=== PATIENT | female | born 1990 | race Caucasian/White ===

== ENCOUNTER 2020-08-05 05:01 | Inpatient (IN) | payer OTHER, SELFPAY ==
[2020-08-05] VITALS (121 sets, daily range): BP systolic 64–127; BP diastolic 38–94; PULSE 63–143; RESP 16; TEMP 36.2–36.9; O2SAT 94–100; BMI 33.8
[2020-08-05 05:52] LABS: Basophils Absolute Auto 0.1 K/mm3 (0.0-0.1); Basophils Percent Auto 0.6 % (0.2-1.2); Eosinophils Absolute Auto 0.2 K/mm3 (0-0.3); Eosinophils Percent Auto 1.5 % (0-4.4); Hematocrit 32.1 % (37.0-47.0); Hemoglobin 10.3 g/dL (12.0-15.0); Immature Granulocyte Absolute 0.06 K/mm3 (0.00-0.031); Immature Granulocyte Percent A 0.6 % (0-0.5); Lymphocytes Absolute Auto 2.34 K/mm3 (0.9-3.2); Lymphocytes Percent Auto 22.5 % (18.3-44.2); Mean Corpuscular HGB Conc 32.1 g/dl (32-36); Mean Corpuscular Hemoglobin 26.8 pg (26-34); Mean Corpuscular Volume 83.4 fl (80-100); Mean Platelet Volume 12.5 fl (7.4-10.4); Monocytes Absolute Auto 0.5 K/mm3 (0.1-0.6); Neutrophils Absolute Auto 7.3 K/mm3 (1.3-6.7); Neutrophils Percent Auto 69.8 % (45.5-73.1); Platelet Count Result 176 k/mm3 (150-375); Red Blood Count 3.85 M/mm3 (4.2-5.4); Red Cell Distribution Width 13.1 % (11.5-14.5); White Blood Count 10.4 K/mm3 (4.5-10.0)
--- NOTE | 2020-08-05 05:54 | LDADM ---
This patient, Mary Jo Boyce, was admitted to Labor/Delivery/Recovery 104 on 08/05/20 at 05:01. Plans for labor, pain management and were discussed with patient. Patient/family oriented to hospital policies and general routines including ID bracelet, bed and alarms, visiting hours, pain management, procedures, bathroom and other care routines, personal items, smoking policy, room service/diet and guest tray routines, infant security routines, and visiting hours. Patient/Family are encouraged to report perceived risks to care and to ask questions if they do not understand what they are told or what they should do. See OBIX for further documentation.
[2020-08-05] MEDS: OXYTOCIN 30 UNITS/NS 500 ML 30 UNITS/500 ML BAG IV CONT (06:30)
[2020-08-05] MEDS: LACTATED RINGERS 1,000 ML 125 ML IV CONT ×2 (06:30→09:44)
--- NOTE | 2020-08-05 07:20 | WPDHPUPDATE1 ---
History and Physical Update Update Date/Time: 08/05/20 07:20 29 yo at 39w5d who presents for IOL. Her is complicated by history of prior section. She endorses good movement. She denies any regular contractions. also complicated by hypothyroidism on levothyroxine. Pt has been asymptomatic with lab values within normal limits. History and Physical has been reviewed, including an updated exam of the patient. There are NO changes in the patient's condition. Risks, benefits, and alternatives have been discussed and questions answered. Patient agrees to proceed with procedure. A/P: 29 yo at 39w5d admit to L&D routine admission orders prior c/s x1 Rh+ GBS neg FHT cat 1 plan for pitocin IOL. cvx ft/70/-3 Kaufman bulb placed this AM and filled with 60cc of saline AROM at time of kaufman placement for clear fluid continuous EFM
--- NOTE | 2020-08-05 08:51 | WPDANESEPPF ---
Anes - Initial Pre Proc Eval Procedure: Labor Epidural Date/Time: 08/05/20 08:51 Surgeon: Patrick Isidro MD Pre Op Diagnosis: Induction of Labor Patient Data Age: 29 Gender: F Height: 1.57 m Weight: 84 kg Last Vital Signs Temp 36.9 C 08/05/20 06:40 Pulse 92 08/05/20 08:00 BP 119/59 L 08/05/20 08:00 Allergies Allergy/AdvReac Type Severity Reaction Status Date / Time No Known Allergies Allergy Verified 07/19/20 14:33 Home Medications Medication Instructions Recorded Confirmed Type levothyroxine 50 mcg PO DAILY 07/19/20 08/05/20 History prenat.vits,marilu,rzc-lajl-xftio 1 tablet PO DAILY 07/19/20 08/05/20 History [ #2] Laboratory Tests 08/05/20 08/05/20 08/05/20 05:22 05:22 05:22 WBC 10.4 K/mm3 H K/mm3 (4.5-10.0) RBC 3.85 M/mm3 L M/mm3 (4.2-5.4) Hgb 10.3 g/dL L g/dL (12.0-15.0) Hct 32.1 % L % (37.0-47.0) MCV 83.4 fl fl (80-100) MCH 26.8 pg pg (26-34) MCHC 32.1 g/dl g/dl (32-36) RDW 13.1 % % (11.5-14.5) Plt Count 176 k/mm3 k/mm3 (150-375) MPV 12.5 fl H fl (7.4-10.4) Immature Gran % (Auto) 0.6 % H % (0-0.5) Neut % (Auto) 69.8 % % (45.5-73.1) Lymph % (Auto) 22.5 % % (18.3-44.2) [place] % (Auto) 5.0 % % (2.6-8.5) Eos % (Auto) 1.5 % % (0-4.4) Baso % (Auto) 0.6 % % (0.2-1.2) Lymph # (Auto) 2.34 K/mm3 K/mm3 (0.9-3.2) [place] # (Auto) 0.5 K/mm3 K/mm3 (0.1-0.6) Eos # (Auto) 0.2 K/mm3 K/mm3 (0-0.3) Baso # (Auto) 0.1 K/mm3 K/mm3 (0.0-0.1) Abs Immat Gran (auto) 0.06 K/mm3 H K/mm3 (0.00-0.031) Absolute Neuts (auto) 7.3 K/mm3 H K/mm3 (1.3-6.7) Absolute Nucleated RBC 0.0 K/mm3 K/mm3 (0.0-0.012) Nucleated RBC % 0.0 % % (0.0-0.2) RPR Pending Blood Type A Positive Antibody Screen Negative Patient hx anesthesia problems: none Family hx anesthesia problems: none PMFSH Past Medical History Medical History Obesity Family History Family History Father Hypothyroidism Social History Social History Smoking status: Never smoker Substance use: never Spiritual care concerns: No Anes - Eval Final PreProcedure Day of Procedure 08/05/20 08:51 Patient weight: obese Heart: regular rate and rhythm Lungs: normal air movement Airway: Mallampati scale class II Neurological: alert and oriented Last oral intake: >/= 8 hours ASA classification: II Emergent: no Anesthetic plan: proceed Anesthesia type and monitoring: regional epidural Informed Consent: The patient's anesthetic plan and its attendant risks and benefits were discussed with the patient/family/POA. Questions were solicited and answers provided to the satisfaction of the patient/family/POA.
[2020-08-05 10:09] LABS: Rapid Plasma Reagin Non-Reactive (NonReactive)
--- NOTE | 2020-08-05 16:47 | PM.OBPRVD ---
OB - Delivery Note Procedure Procedure: Patient pushed for a spontaneous vaginal delivery. A body cord x1 was noted and delivered through. The fetus was delivered atraumatically and placed on the maternal abdomen. The cord was clamped and cut after 1 minute of life. The cord was double clamped and cut and a segment of cord was collected for cord gases. Cord blood was collected for blood type and Coomb's testing. The placenta delivered spontaneously and was noted to be intact. The perineum was inspected and there was a 2nd degree perineal laceration as well as a left vaginal laceration. The lacerations were repaired with 2-0 vicryl in the usual fashion. Pt also requested that a perineal wart be removed. A simple appearing approximately 3 mm mole was removed from the left vulva. The incision site was closed with a single mattress suture of 2-0 vicryl. The uterus was firm and good hemostasis was noted. The patient and fetus were stable in the delivery room. Intrapartal events: None Induction method: per pitocin protocol Delivery augmentation: rupture of membranes Delivery monitor: external FHT Route of delivery: Episiotomy description: None Laceration Description: Perineal - 2nd Degree and Vaginal - 1st Degree (left) Delivery repair: vicryl Specimen: No Quantitative Blood Loss (ml): 448 Anesthesia type: Epidural Disposition: floor () Complications: No immediate complications [place] Baby Date of : 08/05/20 Time of : 16:17 Weeks of gestation at delivery: 39 gender: Male Weight (pounds): 8 Weight (ounces): 11 presentation: vertex position: Left Occiput Anterior Placenta delivery description: Spontaneous cord vessel description: Around Body x1 score one minute: 8 score five minutes: 9
[2020-08-05] MEDS: OXYTOCIN 30 UNITS/NS 500 ML 30 UNITS/500 ML BAG 125 UNITS IV CONT (16:51)
[2020-08-05] MEDS: WITCH HAZEL 40 PADS 1 PAD TOPICAL (18:50)
[2020-08-05] MEDS: BENZOCAINE 20% AER SPR (*SP) 56 GM CAN 1 SPRAY TOPICAL (18:50)
[2020-08-05] MEDS: IBUPROFEN 600 MG TABLET PO (18:50)
--- NOTE | 2020-08-05 22:17 | PC.NURSE ---
This patient, Mary Jo Boyce, was received from Labor and Delivery on 08/05/20 at 1906. Patient/family oriented to unit policies and routines
[2020-08-06] VITALS: BP 107/72; PULSE 102; RESP 16; TEMP 36.1; O2SAT 97
[2020-08-06] MEDS: IBUPROFEN 600 MG TABLET PO ×2 (04:40→19:52)
[2020-08-06 04:44] VITALS: BP 117/69; PULSE 78; RESP 18; TEMP 36.4; O2SAT 97
[2020-08-06 05:19] LABS: Hematocrit 25.1 % (37.0-47.0); Hemoglobin 8.1 g/dL (12.0-15.0)
[2020-08-06] MEDS: DOCUSATE SODIUM 100 MG CAPSULE PO ×2 (06:49→17:07)
[2020-08-06] MEDS: MULTIVIT/MIN/PREN/FOL AC/IRON TABLET 1 TAB PO (06:49)
[2020-08-06] MEDS: POLYSACCHARIDE IRON COMPLEX 150 MG CAPSULE PO ×2 (06:50→17:07)
[2020-08-06] MEDS: LEVOTHYROXINE SODIUM 50 MCG TABLET PO (06:50)
--- NOTE | 2020-08-06 07:15 | PM.OBDSVD ---
DS: Admitting Diagnosis Admitting Diagnosis Admitting Diagnosis: Intrauterine at term prior section OB - DS: Summary OB Procedures : None OB Procedures Intrapartum: Spontaneous Vag Delivery OB Procedures: : None Status at Discharge Functional status at discharge: independent ambulation Overall status at discharge: patient is back to baseline Time Spent with Patient Time attestation: Total time spent providing and/or coordinating discharge services: Time spent: Less than 30 minutes Exam Const: General: comfortable and no acute distress Resp: Effort & Inspection: normal respiratory effort Auscultation: clear to auscultation bilaterally Cardio: Rate: regular rate GI: GI Palp: Yes Soft to palpation Auscultation: normal bowel sounds Other: Fundus firm below umbilicus Psych: Appearance: grossly normal Mental Status: mental status grossly normal Affect: normal affect DS: Data Data Completed and Pending Labs on day of discharge: Labs from last 24 hours 08/06/20 08/05/20 08/05/20 04:59 05:22 05:22 Hgb 8.1 L Hct 25.1 L RPR Non-reactive Blood Type A Positive Antibody Screen Negative Discharge Plan Discharge Discharging Clinician: Patrick Isidro Patient Disposition: Home, Self-Care Activity: may shower, as tolerated and pelvic rest Diet: regular Patient Instructions: Antibiotic Form, Vaginal Delivery (DC) Stand Alone Forms: General Discharge Information Follow-up/Referrals: Patrick Isidro MD [Physician] - 4 Weeks Discharge Medications: New acetaminophen [Mapap (acetaminophen)] 325 mg Tablet 650 mg PO Q6H PRN (Reason: Mild Pain (1-3) Or Headache) Qty: 30 RF: 0 polysaccharide iron complex 150 mg iron Capsule 150 mg PO BIDWM Qty: 90 RF: 0 ibuprofen 600 mg Tablet 600 mg PO Q6H PRN (Reason: Cramping) Qty: 30 RF: 0 Continued levothyroxine 50 mcg Tablet 50 mcg PO DAILY RF: 0 #2 Tablet 1 tablet PO DAILY RF: 0 Date of admission: 08/05/20 05:01 Primary Care Provider: PHYSICIAN,SUPERVISOR FERTILIZER PROCESSING Admitting Provider: Patrick Isidro Attending physician on admission: Patrick Isidro Condition: Stable
--- NOTE | 2020-08-06 07:22 | WPDANLDPN2 ---
Anes-Prog Note L&D Date/Time: 08/06/20 07:22 Comfortable throughout: labor and delivery Neuraxial method: epidural Epidural/Spinal procedure site: clean & non-tender Neuro status: Neuro function grossly intact. Cardiovascular status: normal Respiratory status: normal Airway patency: baseline Mental status: baseline Post-Op hydration status: normal Vital Signs: Last Vital Signs Temp 36.4 C 08/06/20 04:44 Pulse 78 08/06/20 04:44 Resp 18 08/06/20 04:44 BP 117/69 08/06/20 04:44 Pulse Ox 97 08/06/20 04:44 Pain score (VAS): 2 I/O: Intake & Output 08/05/20 08/05/20 08/06/20 15:59 23:59 07:59 Intake Total 1000 500 Output Total 499 Balance 1000 1 Post-procedural complaints: none Patient feedback: Patient satisfied with anesthetic care.
[2020-08-06 07:40] VITALS: BP 109/71; PULSE 76; RESP 18; TEMP 36.7; O2SAT 98
[2020-08-06 11:45] VITALS: BP 111/60; PULSE 79; RESP 18; TEMP 37.3; O2SAT 97
[2020-08-06 16:30] VITALS: BP 114/72; PULSE 83; RESP 20; TEMP 37.1
[2020-08-06 19:40] VITALS: BP 105/67; PULSE 80; RESP 16; TEMP 36.8; O2SAT 100
[2020-08-06] MEDS: DIBUCAINE 1% OINTMENT 30 GM TUBE 1 APPLIC TOPICAL (20:13)
[2020-08-07] MEDS: LEVOTHYROXINE SODIUM 50 MCG TABLET PO (06:42)
[2020-08-07 07:40] VITALS: BP 116/68; PULSE 84; RESP 16; TEMP 37; O2SAT 98
[2020-08-07] MEDS: MULTIVIT/MIN/PREN/FOL AC/IRON TABLET 1 TAB PO (08:48)
[2020-08-07] MEDS: IBUPROFEN 600 MG TABLET PO (08:48)
[2020-08-07] MEDS: POLYSACCHARIDE IRON COMPLEX 150 MG CAPSULE PO (08:48)
[2020-08-07] MEDS: DOCUSATE SODIUM 100 MG CAPSULE PO (08:48)
--- NOTE | 2020-08-07 09:25 | PC.NURSE ---
Consulted with patient, mother reports infant is eagerly feeding without difficulties or discomfort. Mother states she is 2.5 year old 3-4 times per day. Reviewed should always breastfeed first to assist with adequate intake- reviewing adequate signs of intake. Reviewed feeding cues, frequencies, duration of feedings and feeding elimination flow sheet. Reviewed is 37 weeks gestation and needs to be awoken every three hour for feedings. Mother puts to breast in cradle, was able to latch deeply. Reviewed positioning/alignment in cross cradle, holding breast in ?U? hold and guided asymmetrical latch on. Infant able to latch correctly. Infant nursed eagerly, with steady draws and frequent swallowing noted. Reviewed signs of a correct latch, effective nursing and suck swallow ratio. Infant would slip to shallow latch, mother reports tenderness. Demonstrated how to adjust latch more deeply while feeding. Mother reports she can feel change in latch and has no tenderness. Suggested mother stimulate while feeding to increase stimulate, increase intake and to assist with maintaining deep latch. Nipple care reviewed of lanolin after feedings, warm compresses as needed. Mother wishes for 24 hour discharge. Mother is feeding as required and waking infant to feed if needed. has had at least 8 effective feedings in the past 24 hours, and is currently meeting outcomes for weight, output, jaundice and feeding frequencies. Mother states she feels confident to continue effective at home. Reviewed transition to breast milk, signs of adequate intake, and engorgement/relief. Instructed to call ICP if intake/output less than required. Reviewed regular medications mother is taking. Information provided per Lana. Reviewed community resources on the [facility] website and in the Mom/Baby guide. Information on outpatient services provided. Mother has no further questions at this time.
--- NOTE | 2020-08-07 11:00 | PC.NURSE ---
Patient instructed to view the discharge video Mother & Baby Care, The First Two Weeks . Patient was given the opportunity and encouraged to ask questions. Patient verbalized understanding of information shared and has been given the mother/baby guide for home reference.
--- NOTE | 2020-08-13 07:53 | PM.OBDSVD ---
DS: Admitting Diagnosis Admitting Diagnosis Admitting Diagnosis: intrauterine at term h/o prior c section OB - DS: Summary OB Procedures : None OB Procedures Intrapartum: Spontaneous Vag Delivery OB Procedures: : None Time Spent with Patient Time attestation: Total time spent providing and/or coordinating discharge services: Discharge Plan Discharge Discharging Clinician: Patrick Isidro Patient Disposition: Home, Self-Care Activity: may shower, as tolerated and pelvic rest Diet: regular Discharge Instructions: Education: Mom and Baby Guide and Preeclampsia Handout Given to: Mother Follow-Up: Call your delivering provider's office for an appointment to be seen in: 6 Weeks Mom and baby should come to the [facility] for the follow-up appointment. Appointment Date/Time: August 08, 2020 at 8:00 am What to expect at your follow-up visit: Physical Assessment Call [phone] if you are unable to keep your appointment time. BREAST CARE: * Wear a snug supportive bra. * For engorgement discomfort: Breast Feeding: * Apply warm moist washcloths * Express milk as needed to relieve engorgement * Wear loose clothing * For sore nipples: * Identify correct latch-on * Apply warm moist washcloths before and after nursing * Air dry nipples after nursing * May apply Lansinoh cream to nipples EPISIOTOMY/PERINEAL CARE: * Until bleeding stops, use your essie bottle after urinating * Change your pad frequently throughout the day * You may take sitz baths several times a day (fill your bathtub with warm water and soak for 20 minutes.) Do NOT bathe in the water * No tub baths until seen by your physician - You may shower ACTIVITY: * Rest as much as possible. * Do not exercise or lift anything heavier than your baby (such as laundry or other children.) * Avoid stairs or driving as much as possible. * Do not put anything into the vagina. No douching, tampons, or sexual activity until seen by physician. NOTIFY PHYSICIAN IF YOU HAVE ANY QUESTIONS OR IF ANY OF THE FOLLOWING SYMPTOMS OCCUR: * If your episiotomy becomes red, swollen, or more painful than what you have experienced in the hospital. * If your vaginal bleeding becomes foul smelling. * If your vaginal bleeding becomes more heavy than a period or if your bleeding changes from pink to bright red. However, you may pass an occasional walnut-sized clot once or twice for the first week . * If you experience a sharp, shooting pain in you calves. * If you discover a hard, reddened area on your breast or if you experience flu-like symptoms. DIET: * Eat regular, well-balanced meals. * Drink plenty of fluids daily. If , drink to thirst. Patient Instructions: Vaginal Delivery (DC) Stand Alone Forms: General Discharge Information Follow-up/Referrals: Patrick Isidro MD [Physician] - 4 Weeks Discharge Medications: New acetaminophen [Mapap (acetaminophen)] 325 mg Tablet 650 mg PO Q6H PRN (Reason: Mild Pain (1-3) Or Headache) Qty: 30 RF: 0 polysaccharide iron complex 150 mg iron Capsule 150 mg PO BIDWM Qty: 90 RF: 0 ibuprofen 600 mg Tablet 600 mg PO Q6H PRN (Reason: Cramping) Qty: 30 RF: 0 Continued levothyroxine 50 mcg Tablet 50 mcg PO DAILY RF: 0 prenat.vits,marilu,zqz-dtjd-ddbpk Tablet 1 tablet PO DAILY RF: 0 Date of admission: 08/05/20 05:01 Primary Care Provider: PHYSICIAN,OPTICIAN APPRENTICE DISPENSING Admitting Provider: Patrick Isidro Attending physician on admission: Patrick Isidro Condition: Stable
== END 2020-08-07 12:00 | disposition home or self-care (01) | DRG 807 ==
LOC: ANHLDR 05:10 → ANHOB2 19:22
PROVIDERS: Admitting Provider Student in an Organized Health Care Education/Training Program; Visit Provider Student in an Organized Health Care Education/Training Program
DX: O34.211 Maternal care for low transverse scar from previous cesarean delivery (principal); Z37.0 Single live birth; O70.1 Second degree perineal laceration during delivery; O99.284 Endocrine, nutritional and metabolic diseases complicating childbirth; E03.9 Hypothyroidism, unspecified; O69.82X0 Labor and delivery complicated by other cord entanglement, without compression, not applicable or unspecified; O76 Abnormality in fetal heart rate and rhythm complicating labor and delivery; Z3A.39 39 weeks gestation of pregnancy; D22.9 Melanocytic nevi, unspecified
CPT/HCPCS: 36415; 85014; 85018; 85025; 86592; 86850; 86900; 86901; A9270; J2590; J2795; J7120

== ENCOUNTER 2024-03-20 09:03 | Outpatient (CLI) | payer OTHER, SELFPAY ==
[2024-03-20 09:34] LABS: Glucose Fasting Gestational 80 mg/dL (>/=95)
[2024-03-20 11:00] LABS: Glucose 1 Hour Gest 170 mg/dL (>/=180)
[2024-03-20 12:12] LABS: Glucose 2 Hour Gest 145 mg/dL (>/= 155)
[2024-03-20 13:19] LABS: Glucose 3 Hour Gest 116 mg/dL (>/=140)
--- OUTSIDE RECORDS SUMMARY | 2024-03-22 16:36 | XMS_ITS | Encounter Summary ---
Author Organization [facility] Address [address] [place] [address] Care Team Providers Care Band Saw Runner Name Role Phone Unavailable Primary Care Provider Unavailabl e Encounter Details Date Type Department Care Team (Late st Contact Info) Description 09/14/2022 Lab Requisition [facility] [address] [place] [address] Tammi Choe MD [address] [facility] [address] [place] [address] Social History Tobacco Use Types Packs/Day Years Used Date Smoking Tobacco: Never Assessed Sex and Gender Information Value Date Recorded Sex Assigned at Not on file Gender Identity Not on file Sexual Orientation Not on file documented as of this encounter Plan of Treatment Not on file documented as of this encounter Procedures Procedure Name Priority Date/Time Associated Diagnosis Comments DERMATOPATHOLOGY Routine 09/14/2022 10:0 5 AM CDT documented in this encounter Results * DERMATOPATHOLOGY (09/14/2022 10:05 AM CDT) Case Report Dermatopathology Report ? Case: [id number] ? Authorizing Provider: ??Tammi Choe MD ?Collected: ? 09/14/2022 10:05 AM ? Ordering Location: ? [facility] ? Received: ?09/14/2022 04:31 PM ? Pathologist: ? Naveen Casey MD ? Specimens: ?? A) - Skin, left upper back ? B) - Skin, right post thigh ? 3 5:13 PM T DERMATOPATHOLOGY LABORATORY Final Diagnosis Specimen A. SKIN, left upper back: COMPOUND NEVUS WITH CONGENITAL FEATURES (D22.5) POST-INFLAMMATORY PIGMENT ALTERATION (L81.9) Specimen B. SKIN, right post thigh: COMBINED NEVUS (BANAL & DEEP PENETRATING) (D22.9) (see microscopic description) 3 5:13 PM [facility] DERMATOPATHOLOGY LABORATORY Clinical History A-B: NEVUS R/O MM, IRREGULAR BORDER IRREGULAR COLOR. BROWN PAPULE 3 5:13 PM T DERMATOPATHOLOGY LABORATORY Gross Description Specimen A: Received is one formalin filled container labeled with the patient's name and designated left upper back. The specimen consists of a shave biopsy measuring 5x5x1 mm. Jar 0. Specimen B: Received is one formalin filled container labeled with the patient's name and designated right post thigh. The specimen consists of a shave biopsy measuring 7x6x1 mm. Jar 0. 3 5:13 PM [facility] DERMATOPATHOLOGY LABORATORY Microscopic Description Specimen A. SKIN, left upper back: There are nests of melanocytes at the dermal-epidermal junction and within the dermis. Some melanocytes are splayed between collagen bundles and are localized around adnexal structures. Sections show abundant melanin within melanophages around the superficial vascular plexus. Specimen B. SKIN, right post thigh: Within the dermis, there are there are nest of jane melanocytes with a fascicular pattern. Beta-catenin highlights these melanocytes. P16 shows a mosaic pattern. There are also nests of round and oval melanocytes at the dermal epidermal junction and in the papillary dermis. MART-1/Melan A highlight both populations of melanocytes. Mib1 (Ki-67) shows a low proliferative index. 3 5:13 PM CDT DERMATOPATHOLOGY LABORATORY Disclaimer An external and internal positive and negative controls are appropriate for the histochemical, immunohistochemical and immunofluorescence stain(s) in this case (if any), except where stated explicitly. The performance characteristics of the stain(s) cited in this report were developed and its performance characteristic determined by the Dermatopathology Laboratory at [facility], directed by Dr. Kobi Casey. These tests need not be, and therefore are not, approved by the [place] Food and Drug Administration. The tests are used for clinical purposes. Billing Codes Specimen Charges Stain Charges 27012 23075 1 1 06142 21085 44142 40425 1 1 1 1 3 5:13 PM CDT DERMATOPATHOLOGY LABORATORY Embedded Images 3 5:13 PM CDT DERMATOPATHOLOGY LABORATORY Pathology/Cytology TISSUE SPECIMEN FROM SKIN / Unknown 09/14/2022 10:05 AM CDT 09/14/2022 4:31 PM CDT Miscellaneous samples (specimen) TISSUE SPECIMEN FROM SKIN / Unknown 09/14/2022 10:05 AM CDT 09/14/2022 4:31 PM CDT Tammi Choe MD LAB - PATHOLOGY/CYTO LOGY ORDERABLES DERMATOPATHOLOGY LABORATORY [facility] - Department of Dermatology [facility] Medicine [address] [place] [address], [address] [place] [address], [facility] [phone] documented in this encounter Visit Diagnoses Not on filedocumented in this encounter
--- OUTSIDE RECORDS SUMMARY | 2024-03-22 16:36 | XMS_ITS | Referral Summary ---
Author Organization [facility] Address [address] [place] [address] Care Team Providers Care Attendant Honor Bar Name Role Phone Unavailable Primary Care Provider Unavailabl e Source Comments [facility],non-owned Affiliates and Associated Physician Practices is amultiple site organization consisting of ambulatory clinics and hospital sitesin [place], [place], [place] and [place]. This disclosure is being madepursuant to the Care Everywhere program and may not contain all information available regarding this patient. Last updated 17.[facility] Social History Tobacco Use Types Packs/Day Years Used Date Smoking Tobacco: Never Assessed Sex and Gender Information Value Date Recorded Sex Assigned at Not on file Gender Identity Not on file Sexual Orientation Not on file Plan of Treatment Not on file ALEJADNRA CUMMINGS Personal/Family Other [address] [address] ALEJANDRA CUMMINGS Personal/Family Other [address] [address] ALEJANDRA CUMMINGS Personal/Family Other [address] [address] ALEJANDRA CUMMINGS Personal/Family Other [address] [address] ALEJANDRA CUMMINGS Personal/Family Other [address] [address] Mary Jo Boyce Personal/Family Self 1990 [address] [place] [address]
--- OUTSIDE RECORDS SUMMARY | 2024-03-22 16:36 | XMS_ITS | Clinical Summary ---
Author Organization [facility] Address [address] [place] [address] Care Team Providers Care Website Developer Name Role Phone Unavailable Primary Care Provider Unavailabl e Source Comments [facility],non-owned Affiliates and Associated Physician Practices is amultiple site organization consisting of ambulatory clinics and hospital sitesin [place], [place], [place] and [place]. This disclosure is being madepursuant to the Care Everywhere program and may not contain all information available regarding this patient. Last updated 17.[facility] [employer] Social History Tobacco Use Types Packs/Day Years Used Date Smoking Tobacco: Never Assessed Sex and Gender Information Value Date Recorded Sex Assigned at Not on file Gender Identity Not on file Sexual Orientation Not on file Plan of Treatment Health Maintenance Due Date Last Done Comments PAP SMEAR 1990 HIV SCREENING 09/07/2007 HEPATITIS C SCREENING 09/02/2010 DTAP/TDAP/TD VACCINES (1 - Tdap) 09/07/2011 HEPATITIS B VACCINE (1 of 3 - 19+ 3-dose series) 09/07/2011 COVID-19 VACCINE (1 - 2023-2 5 season) 2023 INFLUENZA VACCINE (#1) 2023 DEPRESSION SCREENING 02/29/2024 ZOSTER VACCINE (1 of 2) 2042 HIB VACCINE Aged Out No longer eligi ble based on patient's age to complete this topic HPV VACCINE Aged Out No longer eligi ble based on patient's age to complete this topic MENINGOCOCCAL (Group B) VACCINE Aged Out No longer eligible based on patient's age to complete this topic MENINGOCOCCAL VACCINE Aged Out No brie chema eligible based on patient's age to complete this topic PNEUMOCOCCAL VACCINE Aged Out No long er eligible based on patient's age to complete this topic ALEJANDRA CUMMINGS Personal/Family Other [address] [address] ALEJANDRA CUMMINGS Personal/Family Other [address] [facility] [address] [place] [address] ALEJANDRA CUMMINGS Personal/Family Other [address] [facility] [address] [place] [address] ALEJANDRA CUMMINGS Personal/Family Other [address] [facility] [address] [place] [address] ALEJANDRA CUMMINGS Personal/Family Other [address] [facility] [address] [place] [address] Mary Jo Boyce Personal/Family Self 1990 [address] [place] [address]
--- OUTSIDE RECORDS SUMMARY | 2024-03-22 16:36 | XMS_ITS | Clinical Summary ---
Author Organization [facility] Address [address] [place] [address] Phone Care Team Providers Care Dealership Manager Name Role Phone JuanisGreggJenniffer Marie [facility] Primary Care Provider Medications Euthyrox 50 mcg tablet TAKE 1 TABLET BY MOUTH ONCE DAILY IN THE MORNING 90 Tablet 04/15/2020 Active Active Problems Problem Noted Date Diagnosed Date S/P primary low transverse 11/08/2017 Hypothyroidism 04/01/2017 Viral upper respiratory infection Fall at home, initial encounter Immunizations Immunization Administration Dates Next Due (ADACEL/BOOSTRIX)(10 YR UP) TDAP VACCINE, 0.5ML, IM 08/22/2017 INFLUENZA VACCINE QUADRIVALENT 6 MOS UP PF IM Family History Medical History Relation Name Comments Healthy Daughter Madison Thyroid Disease Father hypo No Known Problems Half-Brother 1 No Known Problems Half-Brother 2 No Known Problems Half-Sister No Known Problems Maternal Grandmother Cancer Mother Melanoma Skin Cancer Mother No Known Problems Paternal Grandfather Breast Cancer Neg Hx Colon Cancer Neg Hx Ovarian Cancer Neg Hx Relation Name Status Comments Daughter Latoya Alive Father Alive Half-Brother 1 Alive Half-Brother 2 Alive Half-Sister Alive Maternal Grandfather Maternal Grandmother Alive Mother Alive Paternal Grandfather Alive Paternal Grandmother Social History Tobacco Use Types Packs/Day Years Used Date Smoking Tobacco: Never Smokeless Tobacco: Never Alcohol Use Standard Drinks/Week Comments No 0 (1 standard drink = 0.6 oz pur e alcohol) socially Comments No Sex and Gender Information Value Date Recorded Sex Assigned at Not on file Legal Sex Female 2:34 PM CDT Gender Identity Not on file Sexual Orientation Not on file Last Filed Vital Signs Vital Sign Reading Time Taken Comments Blood Pressure 110/76 08/23/2019 1:49 PM CDT Pulse 81 12/21/2017 11:16 AM CDT Temperature 36.6 ??C (97.8 ??F) 11/12/2017 6:59 AM CD T Respiratory Rate 18 11/12/2017 6:59 AM CDT Oxygen Saturation 98% 11/09/2017 4:06 AM CDT Inhaled Oxygen Concentration - - Weight 63 kg (139 lb) 08/23/2019 1:49 PM CDT Height 157.5 cm (5' 2 ) 08/23/2019 1:49 PM CDT Body Mass Index 25.42 08/23/2019 1:49 PM CDT Plan of Treatment Health Maintenance Due Date Last Done Comments HEPATITIS B VACCINES (1 of 3 - 19+ 3-dose series) 09/07/2011 CERVICAL CANCER SCREENING 09/06/20222018, 07/27/2016 INFLUENZA VACCINE (#1) 2023 11/24/2017 DTAP/TDAP/TD VACCINES (2 - T d or Tdap) 08/23/2027 08/22/2017 HPV VACCINES Aged Out No longer eligi ble based on patient's age to complete this topic PNEUMOCOCCAL VACCINE 0-64 YEARS Aged Out No longer eligible b ased on patient's age to complete this topic Procedures Procedure Name Priority Date/Time Associated Diagnosis Comments CERV/VAG CYTO AGE BASED SCREEN PAP Routine 01/01/2019 11:01 AM ORANGE PICKING SUPERVISOR Well woman exam with routine gynecological exam from Last 3 Months or Most Recently Relevant to Health Maintenance Results * CERV/VAG CYTO AGE BASED SCREEN PAP (01/01/2019 11:01 AM ORANGE PICKING SUPERVISOR) COMMENT (PAP): SEE COMMENT 10:55 AM ORANGE PICKING SUPERVISOR [facility] Comment: This order for age-based cervical cancer and STI screening follows ACOG guidelines(PB 168, 140, EPC739). See individual assays for performing site location. CLINICAL INFORMATION Information not provided 01/04/2019 10:55 AM ORANGE PICKING SUPERVISOR [facility] LAST MENSTRUAL PERIOD Information not provided 01/04/2019 10:55 AM ORANGE PICKING SUPERVISOR [facility] PREV PAP: 07/27/16 NIL 01/04/2019 10:55 AM ORANGE PICKING SUPERVISOR [facility] PREV BX: Information not provided 01/04/2019 10:55 AM ORANGE PICKING SUPERVISOR [facility] SOURCE Endocervix 01/04/2019 10:55 AM ORANGE PICKING SUPERVISOR [facility] ADEQUACY: SEE COMMENT 01/04/2019 10:55 AM ORANGE PICKING SUPERVISOR [facility] Comment: Satisfactory for evaluation. Endocervical/transformation zone component present. PAP INTERP Negative for intraepithelial lesion or malignancy. 01/04/2019 10:55 AM ORANGE PICKING SUPERVISOR [facility] COMMENT This Pap test has been evaluated with computer assisted technology. 01/04/2019 10:55 AM ORANGE PICKING SUPERVISOR [facility] SKIN FITTER: SEE COMMENT 2018 10:55 AM ORANGE PICKING SUPERVISOR [facility] Comment: MLO, CT(ASCP) CT screening location: [place] [address] [address] [address] EXPLANATORY NOTE SEE COMMENT 019 10:55 AM ORANGE PICKING SUPERVISOR [facility] Comment: EXPLANATORY NOTE: The Pap is a screening test for cervical cancer. It is not a diagnostic test and is subject to false negative and false positive results. It is most reliable when a satisfactory sample, regularly obtained, is submitted with relevant clinical findings and history, and when the Pap result is evaluated along with historic and current clinical information. Genital SWAB OF ENDOCERVIX / Unknown Collection / Unknown 01/01/2019 11:01 AM ORANGE PICKING SUPERVISOR 01/01/2019 3:39 PM ORANGE PICKING SUPERVISOR Narrative [facility] - 01/04/2019 10:55 AM ORANGE PICKING SUPERVISOR Performing Organization Information: ?Site ID: [place] ?[facility] ?Address: [address] [place] [address] ?Director: Sam Davis D.O., MPH ?[facility] ID: ?[facility] ?Address: [address] [place] [address] ?Director: Cecile Baird us Marie Ellis DO PATHOLOGY/CYTOLOGY ORDERABLES Fi nal Result [facility] [phone] from Last 3 Months or Most Recently Relevant to Health Maintenance Insurance RX [facility] [employer] Advance Directives For more information, please contact: [phone] * Full Code (Latest Code Status on File) Date Activated Date Inactivated Comments 11/08/2017 11:57 AM 11/12/2017 2:31 PM * Full Code Date Activated Date Inactivated Comments 11/08/2017 6:55 AM 11/08/2017 11:57 AM * Full Code Date Activated Date Inactivated Comments 09/27/2017 10:00 PM 09/28/2017 1:56 AM Care Teams Dealership Manager Relationship Specialty Start Date End Date Jenniffer Olivarez FNP PCP - General NURSE PRACTITIONER 01/10/17
--- OUTSIDE RECORDS SUMMARY | 2024-03-22 16:36 | XMS_ITS | Patient Health Summary ---
Author Organization [facility] Address [address] [place] [address] Care Team Providers Care Computer Forensics Investigator Name Role Phone Unavailable Primary Care Provider Unavailabl e Note from [facility],non-owned Affiliates and Associated Physician Practices is amultiple site organization consisting of ambulatory clinics and hospital sitesin [place], [place], [place] and [place]. This disclosure is being madepursuant to the Care Everywhere program and may not contain all information available regarding this patient. Last updated 17.[facility] Social History Tobacco Use Types Packs/Day Years Used Date Smoking Tobacco: Never Assessed Sex and Gender Information Value Date Recorded Sex Assigned at Not on file Gender Identity Not on file Sexual Orientation Not on file Procedures * DERMATOPATHOLOGY(Performed 09/14/2022) * DERMATOPATHOLOGY(Performed 10/22/2020) * DERMATOPATHOLOGY(Performed 01/06/2016) * DERMATOPATHOLOGY(Performed 06/11/2014) * DERMATOPATHOLOGY(Performed 07/13/2011) Results * DERMATOPATHOLOGY (09/14/2022 10:05 AM CDT) Only the most recent of5 resultswithin the time period is included. Case Report Dermatopathology Report ? Case: [id number] ? Authorizing Provider: ??Tammi Choe MD ?Collected: ? 09/14/2022 10:05 AM ? Ordering Location: ? [facility] DermPath Lab ? Received: ?09/14/2022 04:31 PM ? Pathologist: ? Naveen Casey MD ? Specimens: ?? A) - Skin, left upper back ? B) - Skin, right post thigh ? 3 5:13 PM CDT DERMATOPATHOLOGY LABORATORY Final Diagnosis Specimen A. SKIN, left upper back: COMPOUND NEVUS WITH CONGENITAL FEATURES (D22.5) POST-INFLAMMATORY PIGMENT ALTERATION (L81.9) Specimen B. SKIN, right post thigh: COMBINED NEVUS (BANAL & DEEP PENETRATING) (D22.9) (see microscopic description) 3 5:13 PM [facility] DERMATOPATHOLOGY LABORATORY Clinical History A-B: NEVUS R/O [...] 7x6x1 mm. Jar 0. 3 5:13 PM T DERMATOPATHOLOGY LABORATORY Microscopic Description Specimen A. SKIN, [...] characteristic determined by the Dermatopathology Laboratory at [facility], directed by Dr. Kobi Casey. These tests need not be, and therefore are not, approved by the [place] Food and Drug Administration. The tests are used for clinical purposes. Billing Codes Specimen Charges Stain Charges 02641 72805 1 1 98157 81796 65376 67501 1 1 1 1 3 5:13 PM CDT DERMATOPATHOLOGY LABORATORY Embedded Images 3 5:13 PM CDT DERMATOPATHOLOGY LABORATORY Pathology/Cytology TISSUE SPECIMEN FROM SKIN / Unknown 09/14/2022 10:05 AM CDT 09/14/2022 4:31 PM CDT Miscellaneous samples (specimen) TISSUE SPECIMEN FROM SKIN / Unknown 09/14/2022 10:05 AM CDT 09/14/2022 4:31 PM CDT Tammi Choe MD LAB - PATHOLOGY/CYTO LOGY ORDERABLES DERMATOPATHOLOGY LABORATORY [facility] - Department of Dermatology [address], [address] Floor [address] [phone]
== END 2024-03-20 09:04 | disposition home or self-care (01) ==
LOC: ANHLAB 09:06
PROVIDERS: PCP Nurse Practitioner; Visit Provider Student in an Organized Health Care Education/Training Program
DX: Z34.90 Encounter for supervision of normal pregnancy, unspecified, unspecified trimester (principal)
CPT/HCPCS: 36415; 82951; 82952

== ENCOUNTER 2024-05-29 19:31 | Inpatient (IN) | payer OTHER, SELFPAY ==
[2024-05-29] VITALS (23 sets, daily range): BP systolic 89–125; BP diastolic 55–84; PULSE 79–127; O2SAT 96–100; BMI 34.1
--- OUTSIDE RECORDS SUMMARY | 2024-05-29 20:23 | XMS_ITS | Clinical Summary ---
Author Organization [facility] Address [address] [place] [address] Care Team Providers Care Worm Sorter Name Role Phone Unavailable Primary Care Provider Unavailabl e Source Comments [facility] [employer],non-owned Affiliates and Associated Physician Practices is amultiple site organization consisting of ambulatory clinics and hospital sitesin [place], [place], [place] and [place]. This disclosure is being madepursuant to the Care Everywhere program and may not contain all information available regarding this patient. Last updated 17.[facility] [employer] Social History Tobacco Use Types Packs/Day Years [...] to complete this topic MENINGOCOCCAL (Group B) VACC INE SHARED DECISION-MAKING Aged Out No longer eligibl e based on patient's age to complete this topic MENINGOCOCCAL GROUPS A/C/Y/W VACCINE Aged Out No longer eligible b ased on patient's age to complete this topic PNEUMOCOCCAL VACCINE Aged Out No long er eligible based on patient's age to complete this topic [employer] [facility] Personal/Family Other [address] [address] ALEJANDRA CUMMINGS Personal/Family Other [address] [address] ALEJANDRA CUMMINGS Personal/Family Other [address] [address] ALEJANDRA CUMMINGS Personal/Family Other [address] [address] ALEJANDRA CUMMINGS Personal/Family Other [address] [address] Mary Jo Boyce Personal/Family Self 1990 [address] [place] [address]
--- OUTSIDE RECORDS SUMMARY | 2024-05-29 20:23 | XMS_ITS | Encounter Summary ---
Author Organization [facility] Address [address] [place] [address] Care Team Providers Care Machine Cleaner Name Role Phone Unavailable Primary Care Provider Unavailabl e Encounter Details Date Type Department Care Team (Late st Contact Info) Description 09/14/2022 Lab Requisition [facility] - DermPath Lab [address] [place] [address] Tammi Choe MD [address] [facility] [address] [place] [address] Social History Tobacco Use Types Packs/Day Years [...] 10:05 AM CDT) Case Report Dermatopathology Report Case: [id number] Authorizing Provider: Tammi Choe MD Collected: 09/14/2022 10:05 AM Ordering Location: [facility] Received: 09/14/2022 04:31 PM Pathologist: Naveen Casey MD Specimens: A) - Skin, left upper back B) - Skin, right post thigh 5:13 PM CDT DERMATOPATHOLOGY LABORATORY Final Diagnosis Specimen A. SKIN, left upper back: COMPOUND NEVUS WITH CONGENITAL FEATURES (D22.5) POST-INFLAMMATORY PIGMENT ALTERATION (L81.9) Specimen B. SKIN, right post thigh: COMBINED NEVUS (BANAL & DEEP PENETRATING) (D22.9) (see microscopic description) 3 5:13 PM [facility] DERMATOPATHOLOGY LABORATORY Clinical History A-B: NEVUS R/O [...] 7x6x1 mm. Jar 0. 3 5:13 PM [facility] DERMATOPATHOLOGY LABORATORY Microscopic Description Specimen A. SKIN, [...] a low proliferative index. 3 5:13 PM [facility] DERMATOPATHOLOGY LABORATORY Disclaimer An external and internal positive and negative controls are appropriate for the histochemical, immunohistochemical and immunofluorescence stain(s) in this case (if any), except where stated explicitly. The performance characteristics of the stain(s) cited in this report were developed and its performance characteristic determined by the Dermatopathology Laboratory at [facility], directed by Dr. Kobi Casey. These tests need not be, and therefore are not, approved by the [place] Food and Drug Administration. The tests are used for clinical purposes. Billing Codes Specimen Charges Stain Charges 87735 22032 1 1 74025 97633 40886 57814 1 1 1 1 3 5:13 PM CDT DERMATOPATHOLOGY LABORATORY Embedded Images 3 5:13 PM CDT DERMATOPATHOLOGY LABORATORY Pathology/Cytology TISSUE SPECIMEN FROM SKIN / Unknown 09/14/2022 10:05 AM CDT 09/14/2022 4:31 PM CDT Miscellaneous samples (specimen) TISSUE SPECIMEN FROM SKIN / Unknown 09/14/2022 10:05 AM CDT 09/14/2022 4:31 PM CDT Tammi Choe MD LAB - PATHOLOGY/CYTO LOGY ORDERABLES DERMATOPATHOLOGY LABORATORY [facility] - Department of Dermatology [facility] Medicine [address] [place] [address], [address] [phone] documented in this encounter Visit Diagnoses Not on filedocumented in this encounter
--- OUTSIDE RECORDS SUMMARY | 2024-05-29 20:23 | XMS_ITS | Patient Health Record ---
Author Organization [facility] Address [address] [place] [address] Care Team Providers Care Fiber Optic Central Office Installer Name Role Phone Alicia Gil [phone] Reason For Referral No Information Encounters Encounter Location Date Provider Diagnosis [facility] - Alicia Gil [address] [place] [address] 04/16/2024 Alicia Gil Plan Of Treatment No Information
--- OUTSIDE RECORDS SUMMARY | 2024-05-29 20:24 | XMS_ITS | Clinical Summary ---
Author Organization [facility] Address [address] [place] [address] Phone Care Team Providers Care Recruitment Specialist Name Role Phone JuanisGreggJenniffer Marie [facility] Primary Care Provider Medications Euthyrox 50 mcg [...] Medical History Relation Name Comments Healthy Daughter [place] Thyroid Disease Father hypo No Known Problems [...] 81 12/21/2017 11:16 AM CDT Temperature 36.6 C (97.8 F) 11/12/2017 6:59 AM CDT Respiratory Rate 18 11/12/2017 6:59 AM CDT [...] of 3 - 19+ 3-dose series) 09/07/2011 PAP SMEAR 01/01/2022 01/01/2019, 07/27/2016 CERVICAL CANCER SCREENING 2022 HPV/Cotest (30-65) 2022 PAP SMEAR 2022 01/01/2019, 07/27/2016 INFLUENZA VACCINE (#1) 2023 11/24/2017 DTAP/TDAP/TD VACCINES (2 - T d or Tdap) 08/23/2027 08/22/2017 HPV VACCINES Aged Out No longer eligi ble based on patient's age to complete this topic PNEUMOCOCCAL VACCINE 0-49 YEARS Aged Out No longer eligible b ased on patient's age to complete this topic Procedures Procedure Name Priority Date/Time Associated Diagnosis Comments CERV/VAG CYTO AGE BASED SCREEN PAP Routine 01/01/2019 11:01 AM SUPPORT COORDINATOR Well woman exam with routine gynecological exam from Last 3 Months or Most Recently Relevant to Health Maintenance Results * CERV/VAG CYTO AGE BASED SCREEN PAP (01/01/2019 11:01 AM SUPPORT COORDINATOR) COMMENT (PAP): SEE COMMENT 9 10:55 AM SUPPORT COORDINATOR [facility] Comment: This order for age-based cervical cancer and STI screening follows ACOG guidelines(PB 168, 140, CFQ893). See individual assays for performing site location. CLINICAL INFORMATION Information not provided 01/04/2019 10:55 AM SUPPORT COORDINATOR [facility] LAST MENSTRUAL PERIOD Information not provided 01/04/2019 10:55 AM SUPPORT COORDINATOR [facility] PREV PAP: 07/27/16 NIL 01/04/2019 10:55 AM SUPPORT COORDINATOR [facility] PREV BX: Information not provided 01/04/2019 10:55 AM SUPPORT COORDINATOR [facility] SOURCE Endocervix 01/04/2019 10:55 AM SUPPORT COORDINATOR [facility] ADEQUACY: SEE COMMENT 01/04/2019 10:55 AM SUPPORT COORDINATOR [facility] Comment: Satisfactory for evaluation. Endocervical/transformation zone component present. PAP INTERP Negative for intraepithelial lesion or malignancy. 01/04/2019 10:55 AM SUPPORT COORDINATOR [facility] COMMENT This Pap test has been evaluated with computer assisted technology. 01/04/2019 10:55 AM SUPPORT COORDINATOR [facility] GENERAL SCRAP WORKER: SEE COMMENT 2018 10:55 AM SUPPORT COORDINATOR [facility] Comment: MLO, CT(ASCP) CT screening location: [place] [address] [address] [address] EXPLANATORY NOTE SEE COMMENT 019 10:55 AM SUPPORT COORDINATOR [facility] Comment: EXPLANATORY NOTE: The [...] Unknown Collection / Unknown 01/01/2019 11:01 AM SUPPORT COORDINATOR 01/01/2019 3:39 PM SUPPORT COORDINATOR Narrative [facility] - 01/04/2019 10:55 AM SUPPORT COORDINATOR Performing Organization Information: Site ID: [id number] [facility] Address: [address] [place] [address] Director: Sam Davis D.O., MPH Site ID: [place] [facility] Address: [address] [address] [place] [address] Director: Cecile Baird Marie Ellis DO PATHOLOGY/CYTOLOGY ORDERABLES Fi nal Result [facility] [phone] from Last 3 Months or Most Recently Relevant to Health Maintenance Insurance RX [facility] [employer] Advance Directives For more information, please contact: [phone] * Full Code (Latest Code Status on File) Date Activated Date Inactivated Comments 11/08/2017 11:57 AM 11/12/2017 2:31 PM * Full Code Date Activated Date Inactivated Comments 11/08/2017 6:55 AM 11/08/2017 11:57 AM * Full Code Date Activated Date Inactivated Comments 09/27/2017 10:00 PM 09/28/2017 1:56 AM Care Teams Recruitment Specialist Relationship Specialty Start Date End Date Jenniffer Olivarez FNP PCP - General NURSE PRACTITIONER 01/10/17
--- OUTSIDE RECORDS SUMMARY | 2024-05-29 20:24 | XMS_ITS ---
Author Organization [facility] Address [address] [place] [address] Care Team Providers Care Insolvency Consultant Name Role Phone Alicia Gil Gabriel [phone] REASON FOR VISIT est. care jennifer Encounters Encounter Location Date Provider Diagnosis [facility] - Alicia Gil [address] [place] [address] 04/16/2024 Alicia Gil Plan Of Treatment No Information Progress Notes * JONATANMary Jo SanchezDOB: 3 (33 yo F)Acc No.[id number]:04/16/2024 Progress Notes Patient: Mary Jo CANTOR Provider: Naveen Gil MD :1990 A ge:33 Y S ex:Female Date:04/16/2024 Address:[address] [place] [address] Subjective: * Chief Complaints: * 1 . Est. care jennifer. * Medical History: Objective: * Vitals: Assessment: Plan: * Treatment: * Billing Information: * Visit Code: * Procedure Codes: * Electronic signature of Matt Gil MD on 05/29/2024 at 08:23 PM CDT Sign off status: Pending * Provider: Naveen Gil MD Date: 04/16/2024 Generated for Kelly koch/Britton/Kathieitting on: 05/29/2024 08:23 PM CDT
[2024-05-29] MEDS: LACTATED RINGERS 1,000 ML 125 ML IV CONT (21:10)
[2024-05-29 23:12] LABS: Basophils Percent Auto 0.3 % (0.2-1.2); Eosinophils Absolute Auto 0.1 K/mm3 (0-0.3); Eosinophils Percent Auto 0.8 % (0-4.4); Hematocrit 34.7 % (37.0-47.0); Hemoglobin 11.8 g/dL (12.0-15.0); Immature Granulocyte Absolute 0.05 K/mm3 (0.00-0.031); Immature Granulocyte Percent A 0.5 % (0-0.5); Lymphocytes Absolute Auto 2.41 K/mm3 (0.9-3.2); Lymphocytes Percent Auto 24.9 % (18.3-44.2); Mean Corpuscular Hemoglobin 29.9 pg (26-34); Mean Corpuscular Volume 88.1 fl (80-100); Mean Platelet Volume 11.4 fl (7.4-10.4); Monocytes Absolute Auto 0.5 K/mm3 (0.1-0.6); Monocytes Percent Auto 5.5 % (2.6-8.5); Neutrophils Absolute Auto 6.6 K/mm3 (1.3-6.7); Platelet Count Result 150 k/mm3 (150-375); Red Blood Count 3.94 M/mm3 (4.2-5.4); Red Cell Distribution Width 12.8 % (11.5-14.5); White Blood Count 9.7 K/mm3 (4.5-10.0)
--- NOTE | 2024-05-29 23:15 | LDADM ---
This patient, Mary Jo Boyce, was admitted to Labor/Delivery/Recovery 102 on 05/29/24 at 22:50. Plans for labor, pain management and were discussed with patient. Patient/family oriented to hospital policies and general routines including ID bracelet, bed and alarms, visiting hours, pain management, procedures, bathroom and other care routines, personal items, smoking policy, room service/diet and guest tray routines, infant security routines, and visiting hours. Patient/Family are encouraged to report perceived risks to care and to ask questions if they do not understand what they are told or what they should do. See OBIX for further documentation.
--- NOTE | 2024-05-29 23:55 | WPDANESEPP ---
Anes - Eval Pre Procedure Procedure: labor pain management Date/Time: 05/29/24 23:55 Surgeon: Sanna Preop Diagnosis: pain during labor Pre Op Diagnosis: IOL Patient Data Age: 33 Gender: F Height: Weight: Last Vital Signs Pulse 106 H 05/29/24 23:46 BP 113/63 05/29/24 23:46 Pulse Ox 99 05/29/24 23:54 Allergies Allergy/AdvReac Type Severity Reaction Status Date / Time No Known Allergies Allergy Verified 05/28/24 16:04 Home Medications ?Medication ?Instructions ?Recorded ?Confirmed ?Type liothyronine 5 mcg tablet 10 mcg PO DAILY 09/17/22 05/28/24 History thyroid (pork) 90 mg tablet 90 mg PO DAILY 09/17/22 05/28/24 History (Archer Thyroid) vits no.126-ferrous fum tablet PO 11/21/23 05/28/24 History 28 mg iron-folic acid 800 mcg tablet (Classic ) ondansetron HCl 4 mg tablet 4 mg PO Q6H PRN nausea and 03/12/24 05/28/24 Rx vomiting #30 tabs Laboratory Tests 05/29/24 05/29/24 22:58 22:59 WBC 9.7 K/mm3 (4.5-10.0) RBC 3.94 L M/mm3 (4.2-5.4) Hgb 11.8 L D g/dL (12.0-15.0) Hct 34.7 L % (37.0-47.0) MCV 88.1 fl (80-100) MCH 29.9 pg (26-34) MCHC 34.0 g/dl (32-36) RDW 12.8 % (11.5-14.5) Plt Count 150 k/mm3 (150-375) MPV 11.4 H fl (7.4-10.4) Immature Gran % (Auto) 0.5 % (0-0.5) Neut % (Auto) 68.0 % (45.5-73.1) Lymph % (Auto) 24.9 % (18.3-44.2) Houghton % (Auto) 5.5 % (2.6-8.5) Eos % (Auto) 0.8 % (0-4.4) Baso % (Auto) 0.3 % (0.2-1.2) Lymph # (Auto) 2.41 K/mm3 (0.9-3.2) Houghton # (Auto) 0.5 K/mm3 (0.1-0.6) Eos # (Auto) 0.1 K/mm3 (0-0.3) Baso # (Auto) 0.0 K/mm3 (0.0-0.1) Abs Immat Gran (auto) 0.05 H K/mm3 (0.00-0.031) Absolute Neuts (auto) 6.6 K/mm3 (1.3-6.7) Absolute Nucleated RBC 0.000 K/mm3 (0.0-0.012) Nucleated RBC % 0.0 % (0.0-0.2) HIV 1&2 Ab/P24 Ag 4thGn Pending Blood Type Pending Antibody Screen Pending Patient hx anesthesia problems: none Family hx anesthesia problems: none Results Review: All pre-operative results and documents have been reviewed as part of the pre-operative evaluation. [facility] Past Medical History Medical History Suppression of menses Obesity Surgical History Surgical History H/O wisdom tooth extraction History of delivery Family History Family History Father Hypothyroidism Social History Social History Smoking status: Never smoker Alcohol intake: former Substance use: never Do You Feel Safe in your Home?: Yes Lack of Transportation: No Lack of Food: Never True Current Housing: I Have Housing Concerned About Future Housing: No Difficulty Paying Gas/Electric Bills: No Difficulty Paying for Meds: No Currently Unemployed: YES Education: High School Diploma/GED Difficulty w/ Childcare or Family Care: No Living arrangements: with family Occupation/Education: occupation Gender identity (if verbalized by the patient): Female Spiritual care concerns: No Exam Day of Procedure 05/29/24 23:55
[2024-05-30] VITALS (212 sets, daily range): BP systolic 85–127; BP diastolic 43–86; PULSE 25–148; RESP 16–18; TEMP 36.5–37.2; O2SAT 90–100
[2024-05-30] MEDS: LACTATED RINGERS 1,000 ML 125 ML IV CONT ×2 (00:01→07:55)
[2024-05-30 00:03] LABS: HIV 1/2 Ab P24 Ag Result Negative (Negative)
[2024-05-30 00:09] LABS: Syphilis IgG/IgM Antibody Negative (Negative)
[2024-05-30] MEDS: OXYTOCIN 30 UNITS/NS 500 ML 30 UNITS/500 ML BAG IV CONT (00:28)
--- NOTE | 2024-05-30 06:51 | WPDHPUPDATE1 ---
History and Physical Update Update Date/Time: 05/30/24 06:51 33 yo who presents in latent labor. She had been having regular contractions all evening. Decision was made to proceed with augmentation. History and Physical has been reviewed, including an updated exam of the patient. There are NO changes in the patient's condition. Risks, benefits, and alternatives have been discussed and questions answered. Patient agrees to proceed with procedure. A/P: -h/o in G1, successful in G2 -IUI -hypothyroidism- levothyroxine -admit to L&D -routine admission orders -Rh+ -GBS neg -continuous EFM
--- NOTE | 2024-05-30 13:29 | PM.OBPRVD ---
OB - Vaginal Delivery Note Procedure Delivery date: 05/30/24 Events: Previous Delivery Induction method: Per Pitocin Protocol Delivery augmentation: Rupture of Membranes and Pitocin Delivery monitor: External FHT and Internal Uterine Route of delivery: Episiotomy description: None Laceration Description: Perineal - 1st Degree Delivery repair: vicryl Specimen: No Quantitative Blood Loss (ml): 150 Anesthesia type: Epidural Disposition: Floor Complications: No immediate complications Narrative: Patient pushed for a spontaneous vaginal delivery. The fetus was delivered atraumatically and placed on the maternal abdomen. The cord was clamped and cut after 1 minute of life. The cord was double clamped and cut and a segment of cord was collected for cord gases. Cord blood was collected for blood type and Coomb's testing. The placenta delivered spontaneously and was noted to be intact. The perineum was inspected and a first degree perineal laceration was noted. The laceration was repaired with 3-0 vicryl in a running fashion. The uterus was firm and good hemostasis was noted. Baby Date of : 05/30/24 Time of : 13:16 Gestational Age by Date: 39 Infant gender: Male Weight (pounds): 9 Weight (ounces): 14 presentation: vertex position: Right Occiput Anterior Placenta delivery description: Spontaneous Cord Vessel Description: 3 Vessels score one minute: 7 score five minutes: 9
[2024-05-30] MEDS: OXYTOCIN 30 UNITS/NS 500 ML 30 UNITS/500 ML BAG 125 UNITS IV CONT (13:52)
[2024-05-30] MEDS: BENZOCAINE 20% AER SPR (*SP) 56 GM CAN 1 SPRAY TOPICAL (16:17)
[2024-05-30] MEDS: WITCH HAZEL 40 PADS 1 PAD TOPICAL (16:17)
--- NOTE | 2024-05-30 16:20 | OBPPTRN ---
Patient transferred to post room #280 via wheelchair. Support person present. Oriented to unit, room, information board, rooming in, admission packet and security measures. Patient verbalizes understanding.
[2024-05-30] MEDS: ACETAMINOPHEN 325 MG TABLET 650 MG PO (17:37)
[2024-05-30] MEDS: IBUPROFEN 600 MG TABLET PO (21:39)
[2024-05-31 00:40] VITALS: BP 101/67; PULSE 84; RESP 16; TEMP 36.8; O2SAT 98
[2024-05-31 06:59] LABS: Hematocrit 34.2 % (37.0-47.0); Hemoglobin 11.6 g/dL (12.0-15.0)
[2024-05-31 07:45] VITALS: BP 108/80; PULSE 81; RESP 18; TEMP 36.4; O2SAT 99
--- NOTE | 2024-05-31 07:47 | P.DS_ITS ---
DS: Admitting Diagnosis Discharge Date 05/31/24 Admitting Diagnosis intrauterine at term prior x 1 DS: Discharge Diagnosis Discharge Diagnosis (1) Vaginal after (): Code(s): O34.219 - Maternal care for unspecified type scar from previous delivery Status: Acute OB - DS: Summary Hospital Course Hospital Course: 33-year-old who presented at 39 weeks in late in labor. Labor was augmented and patient progressed to complete dilation. Patient had an uncomplicated vaginal delivery. Patient's course was uncomplicated. She declined infant circumcision. Patient was discharged home on day 1. OB Procedures : None OB Procedures Intrapartum: Spontaneous Vag Delivery and OB Procedures: : None Peripartum Data Infant Delivery Method: Natural Vaginal Laceration Description: Perineal - 1st Degree Episiotomy description: None complications: none Status at Discharge Functional status at discharge: independent ambulation Overall status at discharge: patient is progressing back to baseline Time Spent with Patient Time attestation: Total time spent providing and/or coordinating discharge services: Time spent: Less than 30 minutes Exam Const: General: comfortable and no acute distress Resp: Effort & Inspection: normal respiratory effort Auscultation: clear to auscultation bilaterally Cardio: Rate: regular rate GI: GI Palp: Yes Soft to palpation Auscultation: normal bowel sounds Other: Fundus firm below umbilicus Psych: Appearance: grossly normal Mental Status: mental status grossly normal Affect: normal affect DS: Data Data Completed and Pending Labs on day of discharge: Labs from last 24 hours 05/31/24 06:55 Hgb 11.6 L Hct 34.2 L Discharge Plan Discharge Discharging Clinician: Patrick Isidro Activity: as tolerated and pelvic rest Diet: regular Patient Instructions: Vaginal Delivery (DC) Patient Language: Bulgarian Follow-up/Referrals: Patrick Isidro MD [Physician] - Discharge Medications: New acetaminophen 500 mg tablet 500 mg PO Q6H PRN (Reason: pain) Qty: 30 0RF ibuprofen 600 mg tablet 600 mg PO Q6H PRN (Reason: pain) Qty: 30 0RF Continued Classic 28 mg iron- 800 mcg tablet PO thyroid (pork) [[place] Thyroid] 90 mg tablet 90 mg PO DAILY liothyronine 5 mcg tablet 10 mcg PO DAILY Date of admission: 05/29/24 22:50 Primary Care Provider: UNKNOWN,DOCTOR Admitting Provider: Patrick Isidro Attending physician on admission: Patrick Isidro Condition: Stable
[2024-05-31] MEDS: LIOTHYRONINE SODIUM 5 MCG TABLET 10 MCG PO (09:00)
[2024-05-31] MEDS: MULTIVIT/MIN/PREN/FOL AC/IRON TABLET 1 TAB PO (09:00)
[2024-05-31] MEDS: THYROID 30 MG TABLET 90 MG PO (09:01)
--- NOTE | 2024-05-31 09:35 | WPDANLDPN2 ---
Anes-Prog Note L&D Date/Time: 05/31/24 09:35 Comfortable throughout: labor and delivery Neuraxial method: epidural Epidural/Spinal procedure site: clean & non-tender Neuro status: Neuro function grossly intact. Cardiovascular status: normal Respiratory status: normal Airway patency: baseline Mental status: baseline Post-Op hydration status: normal Vital Signs: Last Vital Signs Temp 36.4 C L 05/31/24 07:45 Pulse 81 05/31/24 07:45 Resp 18 05/31/24 07:45 BP 108/80 05/31/24 07:45 Pulse Ox 99 05/31/24 07:45 O2 Del Method Room Air 05/30/24 20:00 Pain score (VAS): 1 I/O: Intake & Output 05/30/24 05/31/24 05/31/24 23:59 07:59 15:59 Output Total 250 Balance -250 Post-procedural complaints: none Patient feedback: Patient satisfied with anesthetic care.
[2024-05-31] MEDS: IBUPROFEN 600 MG TABLET PO (11:51)
[2024-06-01 09:32] VITALS: BP 112/67; PULSE 80; RESP 18; TEMP 36.9; O2SAT 99
== END 2024-05-31 14:58 | disposition home or self-care (01) | DRG 807 ==
LOC: ANHLDR 22:55 → ANHOB2 05-30 16:25
PROVIDERS: Admitting Provider Student in an Organized Health Care Education/Training Program; Visit Provider Student in an Organized Health Care Education/Training Program
DX: O34.211 Maternal care for low transverse scar from previous cesarean delivery (principal); Z37.0 Single live birth; Z3A.39 39 weeks gestation of pregnancy; O70.0 First degree perineal laceration during delivery; O99.284 Endocrine, nutritional and metabolic diseases complicating childbirth; E03.9 Hypothyroidism, unspecified
CPT/HCPCS: 36415; 85014; 85018; 85025; 86593; 86703; 86850; 86900; 86901; A9270; G0432; J2590; J2795; J7120